=== PATIENT | female | born 1995 | race Caucasian/White ===

== ENCOUNTER 2016-06-05 21:54 | Emergency (ER) | payer OTHER, BC ==
[~2016-06-05] VITALS: Ht 160 cm; Wt 39.6 kg
[2016-06-05 22:00] VITALS: TEMP 36.7; Ht 160 cm; Wt 39.6 kg
[2016-06-05] MEDS ORDERED: SODIUM CHLORIDE 0.9% 1000ML 1,000 ML IV SCH (22:15)
--- NOTE | 2016-06-05 22:15 | EMERGENCY ROOM VISIT NOTE ---
History Report prepared by Pastora: Bernardo Mcdermott Under the Supervision of: Dr. Buck Barber D.O. First contact with patient: 22:08 Chief Complaint: WEAKNESS Stated Complaint: ANEMIC,WEAKNESS History of Present Illness The patient is a 21 year old female who presents to the Emergency Room with complaints of worsening generalized weakness. The patient is also feeling dizzy and fatigued. The patient has a history of anemia and her last hemoglobin count was in the 7's in January. The patient has long periods at baseline. Her current period is irregular, which has happened before. She takes iron supplements. The patient has never required a blood transfusion. She denies craving ice chips. Source of History: patient Position: other (generalized) Symptom Intensity: last Hgb in the ' Quality: other (weakness) Timing: worsening Associated Symptoms: + fatigue Note: Positive dizziness. Review of Systems See HPI for pertinent positives and negatives. A total of ten systems were reviewed and were otherwise negative. Past Medical & Surgical Medical Problems: (1) Anemia Family History No pertinent family history Social History Smoking Status: Never Smoker Occupation Status: [employer] student Current/Historical Medications Scheduled PRN Ferrous Sulfate (Iron), 325 MG PO DAILY PRN for MENSTRUAL CYCLE Allergies Coded Allergies: No Known Allergies (Unverified , 06/05/16) Physical Exam Vital Signs Date Time Temp Pulse Resp B/P Pulse Ox O2 Delivery O2 Flow Rate FiO2 06/05/16 22:18 81 06/05/16 22:16 100 Room Air 06/05/16 22:16 100 Room Air 06/05/16 22:00 36.7 100 18 121/86 100 Room Air Physical Exam GENERAL: Awake, alert, well-appearing, in no distress HENT: Normocephalic, atraumatic. Oropharynx unremarkable. EYES: Normal conjunctiva. Sclera non-icteric. NECK: Supple. No nuchal rigidity. FROM. No JVD. RESPIRATORY: Clear to auscultation. CARDIAC: Regular rate, normal rhythm. Extremities warm and well perfused. Pulses equal. ABDOMEN: Soft, non-distended. No tenderness to palpation. No rebound or guarding. No masses. RECTAL: Deferred. MUSCULOSKELETAL: Chest examination reveals no tenderness. The back is symmetrical on inspection without obvious abnormality. There is no CVA tenderness to palpation. No joint edema. LOWER EXTREMITIES: Calves are equal size bilaterally and non-tender. No edema. No discoloration. NEURO: Normal sensorium. No sensory or motor deficits noted. SKIN: No rash or jaundice noted. Medical Decision & Procedures Laboratory Results 06/05/16 22:24 Red Blood Count 5.03, Mean Corpuscular Volume 75.1, Mean Corpuscular Hemoglobin 23.5, Mean Corpuscular Hemoglobin Concent 31.2, Neutrophils (%) (Auto) 51.0, Lymphocytes (%) (Auto) 42.4, Monocytes (%) (Auto) 5.4, Eosinophils (%) (Auto) 0.8, Basophils (%) (Auto) 0.4, Neutrophils # (Auto) 2.55, Lymphocytes # (Auto) 2.12, Monocytes # (Auto) 0.27, Eosinophils # (Auto) 0.04, Basophils # (Auto) 0.02 06/05/16 22:24 Test 06/05/16 22:24 White Blood Count 5.00 K/uL (4.8-10.8) Red Blood Count 5.03 M/uL (4.2-5.4) Hemoglobin 11.8 g/dL (12.0-16.0) Hematocrit 37.8 % (37-47) Mean Corpuscular Volume 75.1 fL (80-100) Mean Corpuscular Hemoglobin 23.5 pg (25-34) Mean Corpuscular Hemoglobin Concent 31.2 g/dl (32-36) Platelet Count 165 K/uL (130-400) Neutrophils (%) (Auto) 51.0 % Lymphocytes (%) (Auto) 42.4 % Monocytes (%) (Auto) 5.4 % Eosinophils (%) (Auto) 0.8 % Basophils (%) (Auto) 0.4 % Neutrophils # (Auto) 2.55 K/uL (1.4-6.5) Lymphocytes # (Auto) 2.12 K/uL (1.2-3.4) Monocytes # (Auto) 0.27 K/uL (0.11-0.59) Eosinophils # (Auto) 0.04 K/uL (0-0.5) Basophils # (Auto) 0.02 K/uL (0-0.2) RDW Standard Deviation 43.1 fL (36.4-46.3) RDW Coefficient of Variation 16.0 % (11.5-14.5) Immature Granulocyte % (Auto) 0.0 % Immature Granulocyte # (Auto) 0.00 K/uL (0.00-0.02) Anion Gap 7.0 mmol/L (3-11) Est Creatinine Clear Calc Drug Dose 69.2 ml/min Estimated GFR () 122.3 Estimated GFR (Non- 105.5 BUN/Creatinine Ratio 21.0 (10-20) Calcium Level 9.2 mg/dl (8.5-10.1) Total Bilirubin 0.6 mg/dl (0.2-1) Direct Bilirubin 0.1 mg/dl (0-0.2) Aspartate Amino Transf (AST/SGOT) 13 U/L (15-37) Alanine Aminotransferase (ALT/SGPT) 16 U/L (12-78) Alkaline Phosphatase 60 U/L (45-117) Total Protein 7.8 gm/dl (6.4-8.2) Albumin 4.0 gm/dl (3.4-5.0) Laboratory results reviewed by me Medications Administered Medications (Trade) Dose Ordered Sig/Daniela Route Start Time Stop Time Status Last Admin Dose Admin Sodium Chloride (Nss 1000ml) 1,000 ml @ 999 mls/hr Q1H1M IV 06/05/16 22:15 07/05/16 22:14 06/05/16 22:29 999 MLS/HR ED Course 2210: The patient was evaluated in room B12b. A complete history and physical exam was performed. 2215: NSS 1000 ml @ 999 mls/hr. Medical Decision Differential diagnosis includes anemia, dehydration, metabolic abnormality, dysfunctional uterine bleeding. Patient remains in stable condition patient's labs are absolutely normal at this time no signs of anemia. Reassessment she is nonfocal neurologically at 2315 Impression Primary Impression: Weakness Scribe Attestation The scribe's documentation has been prepared under my direction and personally reviewed by me in its entirety. I confirm that the note above accurately reflects all work, treatment, procedures, and medical decision making performed by me. Departure Information Dispostion Home / Self-Care Referrals No Doctor, Assigned (PCP) Patient Instructions ED Weakness Maira BRADLEY [facility]
[2016-06-05 22:16] VITALS: O2SAT 100
[2016-06-05 22:46] LABS: BASO % 0.4 %; BASO ABS # 0.02 K/uL (0-0.2); COMPLETE YES; EOS % 0.8 %; HEMATOCRIT 37.8 % (37-47); LYMPH % 42.4 %; LYMPH ABS # 2.12 K/uL (1.2-3.4); MEAN CELL VOLUME 75.1 fL (80-100); MEAN CORPUSCULAR HEMOGLOBIN 23.5 pg (25-34); MEAN CORPUSCULAR HGB CONC 31.2 g/dl (32-36); MONO % 5.4 %; PLATELET COUNT 165 K/uL (130-400); RED BLOOD COUNT 5.03 M/uL (4.2-5.4)
[2016-06-05] MEDS ORDERED: FERR1TAB23 PO (23:03)
[2016-06-05 23:04] LABS: CALCIUM 9.2 mg/dl (8.5-10.1); CREATININE 0.79 mg/dl (0.60-1.20); POTASSIUM 3.7 mmol/L (3.5-5.1)
[2016-06-05 23:25] VITALS: BP 116/67; PULSE 98; O2SAT 98
== END 2016-06-05 23:31 | disposition home or self-care (01) ==
LOC: C.EDB 21:56
DX: R53.1 Weakness (principal); D64.9 Anemia, unspecified

== ENCOUNTER 2017-05-09 16:35 | Emergency (ER) | payer BC, OTHER ==
[~2017-05-09] VITALS: Ht 157.5 cm; Wt 41.7 kg
[~2017-05-09 16:35] MED LIST: FERR1TAB23 PO
[2017-05-09 16:55] VITALS: TEMP 36.9; Ht 157.5 cm; Wt 41.7 kg
[2017-05-09] MEDS ORDERED: SODIUM CHLORIDE 0.9% 1000ML 1,000 ML IV STA (18:36)
[2017-05-09] MEDS ORDERED: KETOROLAC TROMETHAMINE 30 MG/ML VIAL IV STA (18:36)
--- NOTE | 2017-05-09 19:13 | EMERGENCY ROOM VISIT NOTE ---
ED Visit Note First contact with patient: 18:24 CHIEF COMPLAINT: Headache, feeling anxious HISTORY OF PRESENTING ILLNESS: This is a 22-year-old female who presents to the emergency department with complaint of headaches that have been off and on for the past week. She describes the headache as the top of her head, radiating down the sides of her neck into her shoulders, has been constant, states when she got here it was 8/10, but since coming back to the room it is now a 5/10. She states today that she was feeling very anxious and stressed, and she started to feel faint like she might pass out and was also nauseated and felt that her heart was racing. She denies any chest pain or shortness of breath, denies syncope. She states that she has been under a lot of stress this week, she feels like this is making everything worse. She also notes that she has not been eating well for the past few weeks, which she attributes to stress and being busy with school, and notes that she has not eaten anything today since breakfast. She reports a history of iron-deficiency anemia in the past, and states she is concerned about this. She also is concerned she may be , and is asking to be tested for this. She states that she has had similar headaches in the past, but never lasting this long or this severe. She has not tried any medications for the pain. She states that her headaches feel better when she takes a nap or after crying, feel worse when she is having increased anxiety. She denies any fevers or chills, neck stiffness, vomiting, vision changes, or rash. She is up-to-date on immunizations. She does report irregular periods, her last period was approximately 5-6 weeks ago. She denies any urinary symptoms or rash. REVIEW OF SYSTEMS: A complete 10 point review of systems was reviewed with the patient with pertinent positives and negatives as per history of present illness. All else were negative. PAST MEDICAL HISTORY: Reviewed in chart SOCIAL HISTORY: Lives off campus. She is a [employer] student, from [place]. She denies any tobacco, alcohol, or recreational drug use. ALLERGIES: No known allergies PHYSICAL EXAM: CONSTITUTIONAL: Pleasant and cooperative. No acute distress. No pallor. Mildly dehydrated, but otherwise well appearing and well nourished. HEENT: Normocephalic, atraumatic. PERRL, EOMI, conjunctiva mildly pale bilaterally. TMs normal. Pharynx normal. Tacky mucous membranes. NECK: Supple, full active range of motion without discomfort. No cervical adenopathy. RESPIRATORY: Clear to auscultation bilaterally with no wheezing, crackles, rhonchi or stridor. Equal expansion bilaterally. CARDIOVASCULAR: Regular rate and rhythm with no murmurs, rubs or gallops. Normal peripheral perfusion. No edema. GASTROINTESTINAL: Soft, nontender, nondistended. No palpable masses or HSM. Bowel sounds present in all quadrants. MUSCULOSKELETAL: Full range of motion of all joints without discomfort. INTEGUMENTARY: No rash or other significant dermatologic conditions noted. NEUROLOGIC: Alert and oriented X 4 with normal affect. Cranial nerves II-XII grossly intact, no facial droop. No pronator drift. No focal neurologic deficits noted. Normal strength and sensation in all 4 extremities. Normal speech. Normal gait observed. [id number]-[id number] testing normal. Negative Romberg. ED COURSE AND MEDICAL DECISION MAKING: CC: Patient presenting with complaint of headache and anxiety DIFFERENTIAL DIAGNOSIS: Includes, but not limited to tension headache, migraine headache, dehydration, electrolyte abnormality, anemia, anxiety/panic attack, mass or mass effect, sinusitis, intracranial hemorrhage, among others. INTERPRETATION OF LABS: No leukocytosis, microcytic anemia, no significant electrolyte abnormalities, normal renal function. UA negative for infection, urine negative IMAGING: HEAD CT NONCONTRAST CT DOSE: 537.48 mGy.cm HISTORY: headache TECHNIQUE: Multiaxial CT images of the head were performed without the use of intravenous contrast. Automated exposure control was utilized for this study. A dose lowering technique was utilized adhering to the principles of ALARA. Comparison: None. Findings: The paranasal sinuses and mastoid air cells are clear. The calvarium and skull base are intact. The ventricles and sulci are within normal limits. There is no mass, hematoma, midline shift, or acute infarct. Impression: No acute intracranial abnormality. MEDICATION RECONCILIATION: I attest that I have personally reviewed the patient 's current medication list. INITIAL VITAL SIGNS REVIEW: I reviewed the patient's initial vital signs and interpret them as follows: T: Afebrile; BP: Normotensive; HR: Tachycardic; RR : Within normal limits; Pulse Ox: Within normal limits on room air. Blood pressure screening: The patient was found to have normal blood pressure on screening and does not require follow-up for repeat blood pressure check. SUMMARY: Patient was evaluated at bedside, history and physical exam performed. Patient is alert and oriented, no acute distress, resting, in stretcher. Patient states over and over again that she is feeling very anxious, she is most concerned about what could be causing her headache, but is also concerned that she may have anemia again, and is also asking about possible . Patient's neurologic exam is completely intact with no focal deficits. The patient appears mildly dehydrated. Orders were placed at bedside for labs, UA and urine , IV fluids for hydration, IV Toradol for headache, CT head noncontrast to evaluate for intracranial abnormality. Patient discussed with Dr. Cotton, who agrees with my assessment and plan. Labs and imaging reviewed as above, notable for microcytic anemia. Given the patient's history of iron deficiency anemia, I did recommend that the patient start taking iron supplements daily again. Patient reassessed multiple times throughout ED stay, she appears much more calm and states her headache is almost completely gone, now rates as a / Patient was updated on all results and plan for discharge, she was encouraged to follow-up closely with [facility] and her home PCP regarding her headaches, anxiety, and anemia. Rx for ferrous sulfate was sent to the pharmacy and patient was educated regarding the use of this medication. Patient was also given strict return precautions should her symptoms worsen, she verbalized understanding. Patient was discharged home in stable condition and ambulatory. Problem List Medical Problems: (1) Anemia Status: Chronic Current/Historical Medications Scheduled Ferrous Sulfate (Kp Ferrous Sulfate), 1 TAB PO DAILY Scheduled PRN Ferrous Sulfate (Iron), 325 MG PO DAILY PRN for MENSTRUAL CYCLE Allergies Coded Allergies: No Known Allergies (Unverified , 06/05/16) Vital Signs Date Time Temp Pulse Resp B/P (MAP) Pulse Ox O2 Delivery O2 Flow Rate FiO2 05/09/17 20:30 84 18 122/80 100 Room Air 05/09/17 18:24 95 16 118/76 100 Room Air 05/09/17 16:55 36.9 101 17 115/68 100 Room Air Laboratory Results 05/09/17 19:23 Red Blood Count 4.99, Mean Corpuscular Volume 61.3, Mean Corpuscular Hemoglobin 16.8, Mean Corpuscular Hemoglobin Concent 27.5, Neutrophils (%) (Auto) 69.1, Lymphocytes (%) (Auto) 24.7, Monocytes (%) (Auto) 5.4, Eosinophils (%) (Auto) 0.4, Basophils (%) (Auto) 0.4, Neutrophils # (Auto) 4.62, Lymphocytes # (Auto) 1.65, Monocytes # (Auto) 0.36, Eosinophils # (Auto) 0.03, Basophils # (Auto) 0.03 05/09/17 19:23 Test 05/09/17 19:23 05/09/17 19:26 White Blood Count 6.69 K/uL (4.8-10.8) Red Blood Count 4.99 M/uL (4.2-5.4) Hemoglobin 8.4 g/dL (12.0-16.0) Hematocrit 30.6 % (37-47) Mean Corpuscular Volume 61.3 fL (80-100) Mean Corpuscular Hemoglobin 16.8 pg (25-34) Mean Corpuscular Hemoglobin Concent 27.5 g/dl (32-36) Platelet Count 297 K/uL (130-400) Neutrophils (%) (Auto) 69.1 % Lymphocytes (%) (Auto) 24.7 % Monocytes (%) (Auto) 5.4 % Eosinophils (%) (Auto) 0.4 % Basophils (%) (Auto) 0.4 % Neutrophils # (Auto) 4.62 K/uL (1.4-6.5) Lymphocytes # (Auto) 1.65 K/uL (1.2-3.4) Monocytes # (Auto) 0.36 K/uL (0.11-0.59) Eosinophils # (Auto) 0.03 K/uL (0-0.5) Basophils # (Auto) 0.03 K/uL (0-0.2) RDW Standard Deviation 42.1 fL (36.4-46.3) RDW Coefficient of Variation 18.8 % (11.5-14.5) Immature Granulocyte % (Auto) 0.0 % Immature Granulocyte # (Auto) 0.00 K/uL (0.00-0.02) Hypochromasia PRESENT Anisocytosis PRESENT Microcytosis PRESENT Schistocytes OCCASIONAL Anion Gap 6.0 mmol/L (3-11) Est Creatinine Clear Calc Drug Dose 80.4 ml/min Estimated GFR () 138.2 Estimated GFR (Non- 119.2 BUN/Creatinine Ratio 12.6 (10-20) Calcium Level 9.0 mg/dl (8.5-10.1) Urine Color YELLOW Urine Appearance CLEAR (CLEAR) Urine pH 6.5 (4.5-7.5) Urine Specific [place] 1.010 (1.000-1.030) Urine Protein NEG (NEG) Urine Glucose (UA) NEG (NEG) Urine Ketones NEG (NEG) Urine Occult Blood NEG (NEG) Urine Nitrite NEG (NEG) Urine Bilirubin NEG (NEG) Urine Urobilinogen NEG (NEG) Urine Leukocyte Esterase NEG (NEG) Urine Test NEG (NEG) Medications Administered Medications (Trade) Dose Ordered Sig/Daniela Route Start Time Stop Time Status Last Admin Dose Admin Sodium Chloride 1,000 ml @ 999 mls/hr Q1H1M STAT IV 05/09/17 18:36 05/09/17 19:36 DC 05/09/17 19:19 999 MLS/HR Ketorolac Tromethamine (Toradol Inj) 15 mg NOW STAT IV 05/09/17 18:36 05/09/17 18:43 DC 05/09/17 19:20 15 MG Departure Information Impression Primary Impression: Headache Additional Impressions: Anemia Anxiety Dispostion Home / Self-Care Condition GOOD Prescriptions Ferrous Sulfate ( FERROUS SULFATE) 325 Mg Tab 1 TAB PO DAILY for 30 Days, #30 TAB 3 Refills Prov: Rema Chandler CRNP 05/09/17 Referrals No Doctor, Assigned (PCP) [facility] Patient Instructions ED Anemia Iron Deficiency, ED Headache Tension, ED Panic Attack, [facility] Additional Instructions You have been treated in the Emergency Department for your headache. Laboratory results and imaging studies have ruled out any emergent causes for your symptoms which would warrant admission or surgery. For headaches, you can use the following [id number] medicines (if >12 yo): - Regular strength (325mg/tab) Tylenol (acetaminophen) 2 tabs every 4-6 hours as needed. Do not exceed 10 tablets in a 24 hour period. Avoid taking more than 3000 mg of Tylenol per day. This includes any other sources of acetaminophen you may take on a regular basis. - Regular strength (200 mg/tab) Advil (ibuprofen) 3 tabs every 6-8 6 hours as needed. Do not exceed a dose of 2400 mg per day. Drink plenty of fluids to stay well hydrated. Rest today in a quiet, peaceful, dark environment and get a full 8-10 hrs of sleep tonight. Avoid loud noises, smoke/smoking, alcohol, bright lights, stress, or physical exertion today to minimize the chance the headache may return or worsen. You were found to be anemic on blood work today. Hemoglobin - 8.4 ; Hematocrit - 30.6 You have been prescribed ferrous sulfate (iron supplements) to be taken daily to help with iron deficiency, which is most likely causing your anemia. It is important that you follow-up to have your anemia rechecked in the next 1- 2 weeks. Please follow-up with [facility] for ongoing management of your anemia. Return to the ER for chest pain, shortness of breath or difficulty catching your breath, severe dizziness or passing out, worsening headache, vision problems, neck stiffness/pain, fevers, vomiting, worsening of your condition, or as needed. School Instructions Return To School: 2 days Problem Qualifiers Primary Impression: Headache Headache type: unspecified Headache chronicity pattern: episodic headache Intractability: not intractable Qualified Codes: R51 - Headache Additional Impressions:
[2017-05-09 19:49] LABS: CREATININE 0.71 mg/dl (0.60-1.20); POTASSIUM 4.3 mmol/L (3.5-5.1)
--- NOTE | 2017-05-09 20:03 | DIAGNOSTIC IMAGING REPORT ---
HEAD CT NONCONTRAST CT DOSE: 537.48 mGy.cm HISTORY: headache TECHNIQUE: Multiaxial CT images of the head were performed without the use of intravenous contrast. Automated exposure control was utilized for this study. A dose lowering technique was utilized adhering to the principles of ALARA. Comparison: None. Findings: The paranasal sinuses and mastoid air cells are clear. The calvarium and skull base are intact. The ventricles and sulci are within normal limits. There is no mass, hematoma, midline shift, or acute infarct. Impression: No acute intracranial abnormality. Electronically signed by: Connor Dudley M.D. 05/09/2017 8:02 PM Dictated Date/Time: 05/09/2017 7:56 PM
[2017-05-09 20:23] LABS: HEMATOCRIT 30.6 % (37-47); HEMOGLOBIN 8.4 g/dL (12.0-16.0); MEAN CELL VOLUME 61.3 fL (80-100); MEAN CORPUSCULAR HEMOGLOBIN 16.8 pg (25-34); MEAN CORPUSCULAR HGB CONC 27.5 g/dl (32-36); PLATELET COUNT 297 K/uL (130-400); RED CELL DISTRIBUTION WIDTH CV 18.8 % (11.5-14.5); RED CELL DISTRIBUTION WIDTH SD 42.1 fL (36.4-46.3); WHITE BLOOD COUNT 6.69 K/uL (4.8-10.8)
[2017-05-09 20:55] LABS: BASO % 0.4 %; BASO ABS # 0.03 K/uL (0-0.2); EOS % 0.4 %; EOS ABS # 0.03 K/uL (0-0.5); LYMPH % 24.7 %; LYMPH ABS # 1.65 K/uL (1.2-3.4); MONO % 5.4 %; MONO ABS # 0.36 K/uL (0.11-0.59); NEUT % 69.1 %; NEUT ABS # 4.62 K/uL (1.4-6.5)
[2017-05-09] MEDS ORDERED: FERR1TAB13 PO (21:46)
[2017-05-09 22:16] VITALS: BP 110/66; PULSE 86; O2SAT 100
== END 2017-05-09 22:18 | disposition home or self-care (01) ==
LOC: C.EDB 16:36
DX: R51 Headache (principal); D50.9 Iron deficiency anemia, unspecified; F41.9 Anxiety disorder, unspecified; E86.0 Dehydration

== ENCOUNTER 2017-05-14 17:39 | Emergency (ER) | payer BC ==
[~2017-05-14] VITALS: Ht 160 cm; Wt 35.8 kg
[~2017-05-14 17:39] MED LIST changes: +FERR1TAB13 PO
[2017-05-14 17:50] VITALS: Ht 160 cm; Wt 35.8 kg
[2017-05-14] MEDS ORDERED: SODIUM CHLORIDE 0.9% 1000ML 2,000 ML IV STA (18:03)
[2017-05-14 18:13] VITALS: O2SAT 96
--- NOTE | 2017-05-14 18:27 | EMERGENCY ROOM VISIT NOTE ---
History Report prepared by Pastora: Farrah Kaminski Under the Supervision of: Dr. Too Rich M.D. First contact with patient: 18:00 Chief Complaint: SYNCOPE (NEAR SYNCOPE) Stated Complaint: NEAR SYNCOPE, LIGHTHEAED, HEADACHE Nursing Triage Summary: pt arrived to room A10 via BLS with c/o dizzyness, tachycardia, SOB and muscle stiffness TECHNICAL SERVICES ASSISTANT. VS stable per EMS. Pt was here 3 days ago and was dx with anemia; placed on iron supplements. History of Present Illness The patient is a 22 year old female who presents to the Emergency Room with complaints of a resolved near syncope episode that occurred prior to arrival. She reports a history of anemia and heavy menstrual bleeding, but denies a history of headaches or migraines. The patient was seen in the Emergency Department recently for similar symptoms including a severe headache, noting that she was diagnosed with anemia. She was told to take Tylenol in case of headaches and was given iron pills, which have been making her lose her appetite. The patient states that today she began experiencing lightheadedness, a fast heart rate, difficulty breathing, and was unable to speak. She felt too embarrassed to ask her roommates for a ride to the hospital, so instead she chose to call an ambulance. The patient denies any fevers, sore throat, or congestion. She states that she did not take anything to relieve her pain, noting that Gatorade and orange juice did not help relieve her symptoms. The patient denies any use of alcohol, drugs, or smoking. Source of History: patient Onset: prior to arrival Position: other (neuro) Quality: other (near syncope) Timing: resolved Modifying Factors (Relieving): other (Gatorade and orange juice did not help relieve her symptoms) Associated Symptoms: No fevers, No sorethroat Note: Associated symptoms include: lightheadedness, a fast heart rate, difficulty breathing, and was unable to speak. Patient denies: congestion. Review of Systems See HPI for pertinent positives and negatives. A total of ten systems were reviewed and were otherwise negative. Past Medical & Surgical Medical Problems: (1) Anemia Family History No pertinent family history Social History Smoking Status: Never Smoker Smokeless Tobacco Use: No Alcohol Use: none Drug Use: none Marital Status: single Housing Status: lives with roommate Occupation Status: [employer] student Current/Historical Medications Scheduled Famotidine (Pepcid), 20 MG PO BID Ondasetron Odt (Zofran Odt), 4 MG SL Q6H Scheduled PRN Ferrous Sulfate (Iron), 325 MG PO DAILY PRN for MENSTRUAL CYCLE Allergies Coded Allergies: No Known Allergies (Unverified , 05/14/17) Physical Exam Vital Signs Date Time Temp Pulse Resp B/P (MAP) Pulse Ox O2 Delivery O2 Flow Rate FiO2 05/14/17 21:02 36.7 86 23 123/71 100 05/14/17 20:32 86 23 123/71 100 Room Air 05/14/17 19:21 87 20 130/65 100 Room Air 05/14/17 18:40 102 21 102/80 99 Room Air 05/14/17 18:13 96 Room Air 05/14/17 17:50 36.7 89 18 148/88 96 Room Air 05/14/17 17:49 87 Physical Exam GENERAL: Awake, alert, anxious-appearing, but in no distress HENT: Dry mucous membranes. Normocephalic, atraumatic. Oropharynx unremarkable. EYES: Normal conjunctiva. Sclera non-icteric. NECK: Supple. No nuchal rigidity. FROM. No JVD. RESPIRATORY: Clear to auscultation. CARDIAC: Sinus tachycardia. Extremities warm and well perfused. Pulses equal. ABDOMEN: Soft, non-distended. No tenderness to palpation. No rebound or guarding. No masses. RECTAL: Deferred. MUSCULOSKELETAL: Chest examination reveals no tenderness. The back is symmetrical on inspection without obvious abnormality. There is no CVA tenderness to palpation. No joint edema. LOWER EXTREMITIES: Calves are equal size bilaterally and non-tender. No edema. No discoloration. NEURO: Normal sensorium. No sensory or motor deficits noted. SKIN: No rash or jaundice noted. Medical Decision & Procedures ER Provider Diagnostic Interpretation: Radiology results as stated below per my review and radiologist interpretation: CHEST ONE VIEW PORTABLE CLINICAL HISTORY: Atypical chest pain COMPARISON STUDY: No previous studies for comparison. FINDINGS: The cardiac and mediastinal contours are normal. There is no evidence of focal pulmonary consolidation. There is no evidence of failure. No pleural effusions are visualized. IMPRESSION: No active disease in the chest. Electronically signed by: Dylan Anne M.D. 05/14/2017 6:27 PM Dictated Date/Time: 05/14/2017 6:27 PM Laboratory Results 05/14/17 18:35 Red Blood Count 5.36, Mean Corpuscular Volume 61.6, Mean Corpuscular Hemoglobin 17.0, Mean Corpuscular Hemoglobin Concent 27.6, Neutrophils (%) (Auto) 75.0, Lymphocytes (%) (Auto) 16.8, Monocytes (%) (Auto) 7.1, Eosinophils (%) (Auto) 0.5, Basophils (%) (Auto) 0.3, Neutrophils # (Auto) 4.86, Lymphocytes # (Auto) 1.09, Monocytes # (Auto) 0.46, Eosinophils # (Auto) 0.03, Basophils # (Auto) 0.02 05/14/17 18:35 Test 05/14/17 18:20 05/14/17 18:35 Urine Color YELLOW Urine Appearance CLEAR (CLEAR) Urine pH 6.0 (4.5-7.5) Urine Specific Sunol 1.007 (1.000-1.030) Urine Protein NEG (NEG) Urine Glucose (UA) NEG (NEG) Urine Ketones NEG (NEG) Urine Occult Blood NEG (NEG) Urine Nitrite NEG (NEG) Urine Bilirubin NEG (NEG) Urine Urobilinogen NEG (NEG) Urine Leukocyte Esterase NEG (NEG) Urine Test NEG (NEG) White Blood Count 6.48 K/uL (4.8-10.8) Red Blood Count 5.36 M/uL (4.2-5.4) Hemoglobin 9.1 g/dL (12.0-16.0) Hematocrit 33.0 % (37-47) Mean Corpuscular Volume 61.6 fL (80-100) Mean Corpuscular Hemoglobin 17.0 pg (25-34) Mean Corpuscular Hemoglobin Concent 27.6 g/dl (32-36) Platelet Count 296 K/uL (130-400) Neutrophils (%) (Auto) 75.0 % Lymphocytes (%) (Auto) 16.8 % Monocytes (%) (Auto) 7.1 % Eosinophils (%) (Auto) 0.5 % Basophils (%) (Auto) 0.3 % Neutrophils # (Auto) 4.86 K/uL (1.4-6.5) Lymphocytes # (Auto) 1.09 K/uL (1.2-3.4) Monocytes # (Auto) 0.46 K/uL (0.11-0.59) Eosinophils # (Auto) 0.03 K/uL (0-0.5) Basophils # (Auto) 0.02 K/uL (0-0.2) RDW Standard Deviation 42.3 fL (36.4-46.3) RDW Coefficient of Variation 19.2 % (11.5-14.5) Immature Granulocyte % (Auto) 0.3 % Immature Granulocyte # (Auto) 0.02 K/uL (0.00-0.02) Large Platelets 1+ Polychromasia 1+ Hypochromasia PRESENT Microcytosis PRESENT Anion Gap 6.0 mmol/L (3-11) Est Creatinine Clear Calc Drug Dose 68.1 ml/min Estimated GFR () 135.9 Estimated GFR (Non- 117.2 BUN/Creatinine Ratio 11.6 (10-20) Calcium Level 9.1 mg/dl (8.5-10.1) Magnesium Level 1.9 mg/dl (1.8-2.4) Total Bilirubin 0.3 mg/dl (0.2-1) Direct Bilirubin < 0.1 mg/dl (0-0.2) Aspartate Amino Transf (AST/SGOT) 13 U/L (15-37) Alanine Aminotransferase (ALT/SGPT) 16 U/L (12-78) Alkaline Phosphatase 64 U/L (45-117) Troponin I < 0.015 ng/ml (0-0.045) Total Protein 8.4 gm/dl (6.4-8.2) Albumin 3.9 gm/dl (3.4-5.0) Lipase 132 U/L (73-393) Thyroid Stimulating Hormone (TSH) 0.769 uIu/ml (0.300-4.500) Laboratory results reviewed by me Medications Administered Medications (Trade) Dose Ordered Sig/Daniela Route Start Time Stop Time Status Last Admin Dose Admin Sodium Chloride 2,000 ml @ 999 mls/hr Q2H1M STAT IV 05/14/17 18:03 05/14/17 20:03 DC 05/14/17 18:47 999 MLS/HR Famotidine (Pepcid Tab) 20 mg NOW ONCE PO 05/14/17 20:45 05/14/17 20:46 DC 05/14/17 21:02 20 MG ECG Per My Interpretation Indication: syncope Rate (beats per minute): 75 Rhythm: sinus rhythm (with sinus arrhythmia) Findings: no acute ischemic change, other (normal axis) ED Course 1801: The patient was evaluated in room A10. A complete history and physical exam was performed. 2022: I reevaluated the patient, who is feeling significantly better. Discussed results and discharge instructions: she verbalized understanding and agreement. The patient is ready for discharge. Medical Decision I reviewed the patient's past medical history, medications, and the nursing notes as described above. Differential diagnosis: Etiologies such as vasovagal event, infection, hypoglycemia, electrolyte abnormalities, cardiac sources, intracerebral event, toxicologic, neurologic, as well as others were entertained. The patient is a 22 y/o woman with a pmhx of iron-deficiency anemia who presents to the emergency department with near syncopal episode per HPI. Of note , the patient was seen in the ED 5 days TECHNICAL SERVICES ASSISTANT for CHANCE and dizziness with negative CT head and otherwise found to have her known iron-deficiency anemia (after being off her iron supplements for many months). On arrival the patient is anxious appearing but in NAD, AFVSS. EKG unremarkable. CXR negative. Labs unremarkable including stable H/H. Patient feeling improved after IVF. Patient explains that she has been under a lot of stress lately due to her studies and has new roommates after moving to [email or web address] in February. She admits that she got very worked up during her episode today. Given stable anemia and otherwise reassuring exam, sx most likely related to panic attack in the setting of mild dehydration due to recent decrease PO intake after feeling mild nausea from resuming her iron supplementation. Findings and plan for follow-up reviewed with patient. Patient agreeable and d/c'd per discharge instructions. Medication Reconcilliation Current Medication List: was personally reviewed by me Blood Pressure Screening Patient's blood pressure: Normal blood pressure Blood pressure disposition: Did not require urgent referral Impression Primary Impression: Near syncope Additional Impressions: Dehydration Anxiety Scribe Attestation The scribe's documentation has been prepared under my direction and personally reviewed by me in its entirety. I confirm that the note above accurately reflects all work, treatment, procedures, and medical decision making performed by me. Departure Information Dispostion Home / Self-Care Prescriptions Ondasetron Odt (ZOFRAN ODT) 4 Mg Tab 4 MG SL Q6H for Nausea, #10 TAB Prov: Too Rich M.D. 05/14/17 Famotidine (PEPCID) 20 Mg Tab 20 MG PO BID for 14 Days, #28 TAB Prov: Too Rich M.D. 05/14/17 Referrals No Doctor, Assigned (PCP) Forms HOME CARE DOCUMENTATION FORM, IMPORTANT VISIT INFORMATION Patient Instructions Anxiety Body Response, ED Dehydration, ED Near Syncope [place], [facility] Additional Instructions Please follow up with S in the next 1-3 days for re-evaluation. Your symptoms are likely due to mild dehydration as well as your underlying anxiety. Otherwise, your exam, EKG, chest xray, and lab results did not show signs of an emergent condition at this time. Continue your iron supplementation. Pepcid as needed for acid reduction. Zofran as needed for nausea. Drink plenty of fluids to ensure hydration. Return to the emergency department for worsening symptoms as described in the accompanying instructions. Problem Qualifiers
[2017-05-14 19:04] LABS: ALBUMIN 3.9 gm/dl (3.4-5.0); ALT/SGPT 16 U/L (12-78); AST/SGOT 13 U/L (15-37); BLOOD UREA NITROGEN 8 mg/dl (7-18); CALCIUM 9.1 mg/dl (8.5-10.1); CARBON DIOXIDE 27 mmol/L (21-32); CREATININE 0.72 mg/dl (0.60-1.20); GLUCOSE 98 mg/dl (70-99); LIPASE 132 U/L (73-393); POTASSIUM 3.7 mmol/L (3.5-5.1); SODIUM 139 mmol/L (136-145)
[2017-05-14 19:15] LABS: ALKALINE PHOSPHATASE 64 U/L (45-117); TOTAL PROTEIN 8.4 gm/dl (6.4-8.2)
[2017-05-14 19:39] LABS: BASO % 0.3 %; BASO ABS # 0.02 K/uL (0-0.2); EOS % 0.5 %; EOS ABS # 0.03 K/uL (0-0.5); HEMOGLOBIN 9.1 g/dL (12.0-16.0); IG# 0.02 K/uL (0.00-0.02); LYMPH % 16.8 %; LYMPH ABS # 1.09 K/uL (1.2-3.4); MEAN CELL VOLUME 61.6 fL (80-100); MEAN CORPUSCULAR HGB CONC 27.6 g/dl (32-36); MONO % 7.1 %; MONO ABS # 0.46 K/uL (0.11-0.59); NEUT ABS # 4.86 K/uL (1.4-6.5); PLATELET COUNT 296 K/uL (130-400); RED CELL DISTRIBUTION WIDTH CV 19.2 % (11.5-14.5); RED CELL DISTRIBUTION WIDTH SD 42.3 fL (36.4-46.3); WHITE BLOOD COUNT 6.48 K/uL (4.8-10.8)
[2017-05-14] MEDS ORDERED: ONDA4TAB10 SL (20:36)
[2017-05-14] MEDS ORDERED: FAMO20TA9 PO (20:36)
[2017-05-14] MEDS ORDERED: FAMOTIDINE 20 MG TAB PO ONE (20:45)
[2017-05-14 21:02] VITALS: BP 123/71; PULSE 86; TEMP 36.7; O2SAT 100
== END 2017-05-14 21:03 | disposition home or self-care (01) ==
LOC: EDBD 17:39 → C.EDA 17:40
DX: R55 Syncope and collapse (principal); E86.0 Dehydration; F41.9 Anxiety disorder, unspecified; Z79.899 Other long term (current) drug therapy; D50.9 Iron deficiency anemia, unspecified

== ENCOUNTER 2017-05-16 01:46 | Emergency (ER) | payer BC ==
[~2017-05-16] VITALS: Ht 160 cm; Wt 41.3 kg
[~2017-05-16 01:46] MED LIST changes: +FAMO20TA9 PO; +ONDA4TAB10 SL
[2017-05-16 01:52] VITALS: TEMP 36.7; Ht 160 cm; Wt 41.3 kg
[2017-05-16] MEDS ORDERED: FAMO20TA11 PO (02:24)
[2017-05-16] MEDS ORDERED: ONDA4TAB10 SL ×2 (02:25→04:41)
[2017-05-16] MEDS ORDERED: ONDANSETRON 2MG ODT PO STA (03:31)
[2017-05-16 04:51] VITALS: BP 117/65; PULSE 80; O2SAT 100
--- NOTE | 2017-05-16 04:59 | EMERGENCY ROOM VISIT NOTE ---
History Report prepared by Pastora: Farrah Kaminski Under the Supervision of: Dr. Vanessa Jiménez D.O. First contact with patient: 02:16 Chief Complaint: NAUSEA Stated Complaint: DIZZY,NAUSEA Nursing Triage Summary: Pt presents with decreased appetite, abdominal pain, weakness, nauesa and fatigue. Pt reports that she has had decreased appetite today and was only able to eat a small breakfast today. Pt states "I had to force myself to eat breakfast, I was just so sleepy". pt reports she ate no lunch and had small supper. Took iron pill at supper and reports 2-3 hours later she was having nauesea and right sided abdominal pain. Pt states she was at [facility] and felt really weak. Pt states "I need a solution for this. I keep coming back and nothing is showing up on the tests, but I can't eat, I can't walk. I am so sick of this". Pt reports she was given zofran prescription yesterday, but did not get it filled and its too late to get it tonight. History of Present Illness The patient is a 22 year old female who presents to the Emergency Room with complaints of persistent nausea that began several days ago. This is the patients 3rd visit to the Emergency Department this month for similar symptoms, noting that her most recent visit was one day ago. She reports increased nausea and dizziness.The patient was recently diagnosed with anemia, noting that her iron pills have been causing constipation and abdominal pain. She reports that she hasn't been eating because she does not feel hungry and because it worsens her symptoms. The patient notes a history of irregular menstrual periods, stating that she sometimes goes months without getting her period but has taken tests that have showed negative results. Source of History: patient Onset: several days Position: other (gastrointestinal ) Quality: other (nausea) Timing: other (persistent) Associated Symptoms: + abdominal pain Note: Associated symptoms include: dizziness, constipation, and loss of appetite. Review of Systems See HPI for pertinent positives & negatives. A total of 10 systems reviewed and were otherwise negative. Past Medical & Surgical Medical Problems: (1) Anemia Family History No pertinent family history Social History Smoking Status: Never Smoker Alcohol Use: none Drug Use: none Marital Status: single Housing Status: lives with roommate Occupation Status: [employer] student Current/Historical Medications Scheduled Famotidine (Pepcid), 20 MG PO BID Ondasetron Odt (Zofran Odt), 4 MG SL Q6H Scheduled PRN Ferrous Sulfate (Iron), 325 MG PO DAILY PRN for MENSTRUAL CYCLE Ondasetron Odt (Zofran Odt), 4 MG SL Q6H PRN for Nausea or Vomiting Allergies Coded Allergies: No Known Allergies (Unverified , 05/16/17) Physical Exam Vital Signs Date Time Temp Pulse Resp B/P (MAP) Pulse Ox O2 Delivery O2 Flow Rate FiO2 05/16/17 04:51 80 18 117/65 100 Room Air 05/16/17 03:38 92 16 116/69 100 Room Air 05/16/17 01:52 36.7 99 18 115/66 100 Physical Exam HEENT: Head - normocephalic and atraumatic Pupils are equal, round, and reactive to light. Extraocular eye muscles are intact, and sclera are anicteric. Nose - moist nasal mucosa without discharge. Mouth - moist buccal mucosa. Oropharynx is nonerythematous and there is no tonsillar exudate or edema noted. Neck: Supple; no JVD, nuchal rigidity, cervical lymphadenopathy. Heart: Regular rate and rhythm. There is a normal S1 and S2 with no murmurs, clicks, or gallops appreciated. Lungs: Clear to auscultation bilaterally with no wheezes, rales, or rhonchi. Abdomen: Soft, completely nontender, nondistended, with good bowel sounds. There are no palpable pulsatile masses or hepatosplenomegaly. There is no guarding, rigidity, or rebound noted. Extremities: No evidence of cyanosis, clubbing, or edema. There are easily palpable peripheral pulses. Skin: warm and dry with good turgor and no rashes. Medical Decision & Procedures Medications Administered Medications (Trade) Dose Ordered Sig/Daniela Route Start Time Stop Time Status Last Admin Dose Admin Ondansetron HCl (Zofran Odt) 2 mg NOW STAT PO 05/16/17 03:31 05/16/17 03:32 DC 05/16/17 03:35 2 MG Procedure 0331: Ordered Zofran Odt 2mg PO. ED Course 0301: Past medical records reviewed. The patient was evaluated in room A11 by the medical student under my supervision. A complete history and physical exam was performed by me. 0331: Ordered Zofran Odt 2mg PO. Once the nausea subsides, the patient will try to take crackers and colten robert. 0410: The patient is easily able to take the crackers and colten robert without any further nausea or vomiting. I spent a great deal of time talking to the patient about her oral intake. She denies any eating disorder or making herself vomit. I did note that she had a more than 10 pound weight loss over the past year. She does describe this as a point of stress for her. I offered to have somebody from psychiatry talk to the patient about this stressor but she declined at this time. 0436: Upon reevaluation, the patient was able to eat crackers and drink colten robert. She states that she is feeling better. I suggested the patient stop the iron supplement at this time until she gets the nausea under control. She was given a prescription for Zofran to use and was encouraged to take 5-6 small meals a day specifically for nutrition not for the pleasure of meeting. Once she is feeling better, she can slowly reintroduce the iron supplement as she does need this to. If the situation continues to worsen, she is to follow-up with the [facility] both medically and CAPS. Medical Decision The patient is a 22 year old female who presents to the ED with nausea. Differential diagnosis includes depression, anxiety, anorexia, dehydration, and anemia. I believe the patient is suffering from nausea and malnutrition. I am concerned about her BMI which is less than 15. She denies any type of eating disorder or psychological issues. I suggested that we gain control of the patient's nausea so that she can take a normal diet. Once she is able to consume food normally, she can restart her iron supplement. I recommended close follow-up with [facility] for her malnutrition, iron deficiency anemia, and stress/anxiety. Medication Reconcilliation Current Medication List: was personally reviewed by me Blood Pressure Screening Patient's blood pressure: Normal blood pressure Blood pressure disposition: Did not require urgent referral Impression Primary Impression: Nausea Additional Impression: Malnutrition Scribe Attestation The scribe's documentation has been prepared under my direction and personally reviewed by me in its entirety. I confirm that the note above accurately reflects all work, treatment, procedures, and medical decision making performed by me. Departure Information Dispostion Home / Self-Care Prescriptions Ondasetron Odt (ZOFRAN ODT) 4 Mg Tab 4 MG SL Q6H for Nausea, #12 TAB Prov: Vanessa Jiménez D.O. 05/16/17 Forms HOME CARE DOCUMENTATION FORM, IMPORTANT VISIT INFORMATION Patient Instructions My [facility] Additional Instructions Take plenty of clear liquids and 5-6 small meals a day to prevent malnutrition and to soak up acid production the stomach zofran every 6 hours for nausea so you can eat. Stop iron pills for now Follow up with [facility] thru the [facility] Problem Qualifiers Additional Impression: Malnutrition Malnutrition type: unspecified type Qualified Codes: E46 - Unspecified protein-calorie malnutrition
== END 2017-05-16 04:45 | disposition home or self-care (01) ==
LOC: C.EDB 01:48 → C.EDA 04:45
DX: R11.0 Nausea (principal); E46 Unspecified protein-calorie malnutrition; Z79.899 Other long term (current) drug therapy; Z68.1 Body mass index [BMI] 19.9 or less, adult

== ENCOUNTER 2017-06-01 17:28 | Emergency (ER) | payer BC ==
[~2017-06-01] VITALS: Ht 160 cm; Wt 40.8 kg
[~2017-06-01 17:28] MED LIST changes: +FAMO20TA11 PO; -FAMO20TA9 PO; -FERR1TAB13 PO
[2017-06-01 17:38] VITALS: Ht 160 cm; Wt 40.8 kg
--- NOTE | 2017-06-01 18:47 | EMERGENCY ROOM VISIT NOTE ---
History Report prepared by [place]: Lauro Krishnan Under the Supervision of: Dr. Diann Watts D.O. First contact with patient: 18:30 Chief Complaint: DIZZY Stated Complaint: DIZZY, FATIGUE, WEAKNESS, SORE THROAT Nursing Triage Summary: Patient presents ambulatory to triage with c/o dizziness and nausea for the last 3 days She has been evaluated in this ED for same symptoms several times in the last month Patient states she would like blood level checked for iron as she was told not to take iron tablets due to nausea previously History of Present Illness The patient is a 22 year old female with a history of anemia and malnutrition who presents to the Emergency Room with complaints of persistent dizziness over the past 2 days. She states that she was here 3 times last week because she was really sick with headaches. The patient had blood work which revealed anemia. She notes that she was told that she had tension headaches and potentially some anxiety. She was told to take iron pills, and took them for 2 to 3 days, but had no appetite on them and got nauseated, so she stopped taking the iron pills. She says that for the past 2 days, she started getting dizzy with a lot of fatigue again. The patient notes that she has had 2 episodes over the past 2 days where suddenly her heart starts to race, and she gets lightheaded and feels like passing out. The patient notes that she has to sit down and relax during the episodes. She adds that her legs get numb during the episodes, and her arms hurt. The patient says that the episode yesterday was really bad and almost lasted the entire day. She notes that she does not currently feel her heart racing. She adds that she has had a lot of stress over the past few months , as she has eating problems, and she wants to get better so if she is not hungry she gets stress. She notes that she has been losing weight over the past few months. The patient states that she has not had a period since March, but notes that this is nothing new as she has had irregular periods ever since she was a child. Patient denies any cough or cold symptoms. Denies sore throat or trouble breathing. Denies fevers or chills. Denies black or bloody stools. Patient's prior anemia was attributed to heavy periods. Source of History: patient Onset: Over past 2 days Position: other (global) Quality: other (dizziness) Timing: other (persistent) Associated Symptoms: + nausea, + abdominal pain (last night), + fatigue, + numbness (legs), No LOC Note: Associated symptoms: Heart racing, lightheadedness. Arm pain. Review of Systems See HPI for pertinent positives & negatives. A total of 10 systems reviewed and were otherwise negative. Past Medical & Surgical Medical Problems: (1) Anemia Family History No pertinent family history Social History Smoking Status: Never Smoker Alcohol Use: none Drug Use: none Marital Status: single Housing Status: lives with roommate Occupation Status: Quantitative Medicine student Current/Historical Medications Scheduled PRN Ferrous Sulfate (Iron), 325 MG PO DAILY PRN for MENSTRUAL CYCLE Allergies Coded Allergies: No Known Allergies (Unverified , 05/16/17) Physical Exam Vital Signs Date Time Temp Pulse Resp B/P (MAP) Pulse Ox O2 Delivery O2 Flow Rate FiO2 06/01/17 22:53 81 20 123/73 100 06/01/17 21:25 36.9 06/01/17 19:17 81 111/63 82 114/62 85 115/69 06/01/17 17:38 37.1 104 16 124/61 99 Room Air Physical Exam GENERAL: thin appearing, alert, well nourished, no distress, non-toxic EYE EXAM: normal conjunctiva, PERRL and EOM's grossly intact OROPHARYNX: no exudate, no erythema, lips, buccal mucosa, and tongue normal and mucous membranes are moist NECK: supple, no nuchal rigidity, no adenopathy, non-tender LUNGS: Clear to auscultation. Normal chest wall mechanics, no w/r/r HEART: no murmurs, S1 normal and S2 normal ABDOMEN: abdomen soft, non-tender, normo-active bowel sounds, no masses, no rebound or guarding. BACK: Back is symmetrical on inspection and there is no deformity, no midline tenderness, no CVA tenderness. SKIN: no rashes and no bruising UPPER EXTREMITIES: upper extremities are grossly normal. FROM, nml pulses. LOWER EXTREMITIES: No pitting edema. FROM, nml pulses. NEURO EXAM: Normal sensorium, cranial nerves II-XII grossly intact, normal speech, no gross weakness of arms, no gross weakness of legs. Normal gait. Medical Decision & Procedures Laboratory Results 06/01/17 19:09 Red Blood Count 5.04, Mean Corpuscular Volume 63.1, Mean Corpuscular Hemoglobin 17.5, Mean Corpuscular Hemoglobin Concent 27.7, Neutrophils (%) (Auto) 64.5, Lymphocytes (%) (Auto) 26.3, Monocytes (%) (Auto) 8.1, Eosinophils (%) (Auto) 0.7, Basophils (%) (Auto) 0.3, Neutrophils # (Auto) 4.47, Lymphocytes # (Auto) 1.82, Monocytes # (Auto) 0.56, Eosinophils # (Auto) 0.05, Basophils # (Auto) 0.02 06/01/17 19:09 Test 06/01/17 19:09 White Blood Count 6.93 K/uL (4.8-10.8) Red Blood Count 5.04 M/uL (4.2-5.4) Hemoglobin 8.8 g/dL (12.0-16.0) Hematocrit 31.8 % (37-47) Mean Corpuscular Volume 63.1 fL (80-100) Mean Corpuscular Hemoglobin 17.5 pg (25-34) Mean Corpuscular Hemoglobin Concent 27.7 g/dl (32-36) Platelet Count 229 K/uL (130-400) Neutrophils (%) (Auto) 64.5 % Lymphocytes (%) (Auto) 26.3 % Monocytes (%) (Auto) 8.1 % Eosinophils (%) (Auto) 0.7 % Basophils (%) (Auto) 0.3 % Neutrophils # (Auto) 4.47 K/uL (1.4-6.5) Lymphocytes # (Auto) 1.82 K/uL (1.2-3.4) Monocytes # (Auto) 0.56 K/uL (0.11-0.59) Eosinophils # (Auto) 0.05 K/uL (0-0.5) Basophils # (Auto) 0.02 K/uL (0-0.2) RDW Standard Deviation 49.8 fL (36.4-46.3) RDW Coefficient of Variation 21.9 % (11.5-14.5) Immature Granulocyte % (Auto) 0.1 % Immature Granulocyte # (Auto) 0.01 K/uL (0.00-0.02) Large Platelets 1+ Hypochromasia PRESENT Anion Gap 4.0 mmol/L (3-11) Est Creatinine Clear Calc Drug Dose 74.5 ml/min Estimated GFR () 129.3 Estimated GFR (Non- 111.6 BUN/Creatinine Ratio 14.3 (10-20) Calcium Level 8.7 mg/dl (8.5-10.1) Magnesium Level 1.7 mg/dl (1.8-2.4) Total Bilirubin 0.3 mg/dl (0.2-1) Aspartate Amino Transf (AST/SGOT) 14 U/L (15-37) Alanine Aminotransferase (ALT/SGPT) 13 U/L (12-78) Alkaline Phosphatase 65 U/L (45-117) Total Protein 8.2 gm/dl (6.4-8.2) Albumin 3.9 gm/dl (3.4-5.0) Globulin 4.3 gm/dl (2.5-4.0) Albumin/Globulin Ratio 0.9 (0.9-2) Human Chorionic Gonadotropin, Qual NEG (NEG) Laboratory results per my review. Medications Administered Medications (Trade) Dose Ordered Sig/Daniela Route Start Time Stop Time Status Last Admin Dose Admin Acetaminophen (Tylenol Tab) 650 mg NOW STAT PO 06/01/17 22:32 06/01/17 22:33 DC 06/01/17 22:32 650 MG ECG Per My Interpretation Indication: other (dizzy) Rate (beats per minute): 81 Rhythm: normal sinus Findings: no acute ischemic change, other (normal axis, normal intervals, mild J-point elevation) ED Course 1834: The patient was evaluated in room C12B. A complete history and physical exam was performed. 5: Upon reevaluation, the patient is feeling better. I discussed the findings and the treatment plan with the patient. She verbalizes agreement and understanding. She was discharged home. Medical Decision Differential diagnosis includes etiologies such as benign positional vertigo, dehydration, hypovolemia, anemia, tumor, infection, hypoglycemia, electrolyte abnormalities, cardiac sources, intracerebral event, toxicologic, neurologic, as well as others were entertained. Reviewed in EMR patient's prior evaluation including prior anemia as well as negative head CT. Patient well-appearing here and concern for possible component of anxiety. Patient concerned about anxiety contributing to her nausea which is contributing to her diminished appetite. Patient concerned that she will experience subsequent weight loss and worsening anemia. Discussed with patient need for follow-up with counselors or [place] regarding Anxiety and Possible Manifestations of Her Stress. Discussed Diet, Treatment of Nausea Which Might Be a Stress-Induced Gastritis or GERD. Patient Verbalized Understanding of All This. Discussed Acidic Foods to Avoid. Encouraged Protein Shakes Her Additional Protein Powder to Other Shakes and Smoothies. Discussed with Patient Need for Close Follow-Up with Family Doctor and Resumption of Her Supplemental Iron. Discussed Symptoms to Watch and Return for. Patient Requested to Speak with 1 of Our Counselors Here. She Was Seen and Evaluated by Kin, Psychiatric Gasket Inspector, Who [place] She Was Stable for Outpatient Referral. I Do Not Feel Patient Is an Imminent Danger to Herself or Others and Denied SI/HI. Patient's Vital Signs Here Otherwise Stable , Patient Not Orthostatic, No Dysrhythmias Noted on Telemetry. I Do Not Suspect Occult Cardiac Etiology or Dysrhythmia. I Do Not Suspect Occult Infectious Etiology. Medication Reconcilliation Current Medication List: was personally reviewed by me Blood Pressure Screening Patient's blood pressure: Normal blood pressure Impression Primary Impression: Anemia Additional Impressions: Dizziness Anxiety Scribe Attestation The scribe's documentation has been prepared under my direction and personally reviewed by me in its entirety. I confirm that the note above accurately reflects all work, treatment, procedures, and medical decision making performed by me. Departure Information Dispostion Home / Self-Care Referrals No Doctor, Assigned (PCP) Patient Instructions My [facility] Additional Instructions Please follow-up as recommended by our counselor here. Please try to eat whenever you feel hungry. Please consider adding a protein powder to to a milkshake or smoothie for added calories, or drinking Ensure or boost which has vitamins and minerals in addition to protein also. Please make sure you are drinking plenty of water. Please follow-up with your regular doctor to discuss your anemia as well as her nausea. You will eventually need to restart your iron supplements 2 in light of your anemia. If you have any recurrent episodes of severe anxiety, including tachycardia, trouble breathing, develop worsening headaches, vision changes, black out or pass out, or if you have any other new concerns, please return the emergency room. Problem Qualifiers Primary Impression: Anemia Anemia type: iron deficiency Iron deficiency anemia type: unspecified iron deficiency Qualified Codes: D50.9 - Iron deficiency anemia, unspecified
[2017-06-01 19:43] LABS: HEMATOCRIT 31.8 % (37-47); HEMOGLOBIN 8.8 g/dL (12.0-16.0); MEAN CELL VOLUME 63.1 fL (80-100); MEAN CORPUSCULAR HEMOGLOBIN 17.5 pg (25-34); MEAN CORPUSCULAR HGB CONC 27.7 g/dl (32-36); PLATELET COUNT 229 K/uL (130-400); RED CELL DISTRIBUTION WIDTH CV 21.9 % (11.5-14.5); RED CELL DISTRIBUTION WIDTH SD 49.8 fL (36.4-46.3); WHITE BLOOD COUNT 6.93 K/uL (4.8-10.8)
[2017-06-01 19:46] LABS: ALBUMIN 3.9 gm/dl (3.4-5.0); CALCIUM 8.7 mg/dl (8.5-10.1); CREATININE 0.75 mg/dl (0.60-1.20); POTASSIUM 3.5 mmol/L (3.5-5.1)
[2017-06-01 19:49] LABS: BASO % 0.3 %; BASO ABS # 0.02 K/uL (0-0.2); EOS % 0.7 %; EOS ABS # 0.05 K/uL (0-0.5); IG# 0.01 K/uL (0.00-0.02); LYMPH % 26.3 %; LYMPH ABS # 1.82 K/uL (1.2-3.4); MONO % 8.1 %; MONO ABS # 0.56 K/uL (0.11-0.59); NEUT % 64.5 %; NEUT ABS # 4.47 K/uL (1.4-6.5); TOTAL PROTEIN 8.2 gm/dl (6.4-8.2)
[2017-06-01 21:25] VITALS: TEMP 36.9
[2017-06-01] MEDS ORDERED: ACETAMINOPHEN 325 MG TAB PO STA (22:32)
[2017-06-01 22:53] VITALS: BP 123/73; PULSE 81; O2SAT 100
== END 2017-06-01 22:53 | disposition home or self-care (01) ==
LOC: C.EDB 17:30 → C.EDC 22:53
DX: D50.9 Iron deficiency anemia, unspecified (principal); R42 Dizziness and giddiness; F41.9 Anxiety disorder, unspecified; E46 Unspecified protein-calorie malnutrition; R53.83 Other fatigue; R63.4 Abnormal weight loss; R20.0 Anesthesia of skin